=== PATIENT | male | born 1955 | race Caucasian/White ===

== ENCOUNTER 2022-07-14 09:08 | Outpatient (CLI) | payer OTHER ==
[~2022-07-14 09:08] MED LIST: FOLI0.4T6 PO; MELO-102 PO; METH2.5T PO; MULT-1179 PO; SERT100T PO
== END 2022-07-14 23:59 | disposition home or self-care (01) ==
LOC: RAD 09:08
PROVIDERS: ATTEND Internal Medicine
DX: I63.9 Cerebral infarction, unspecified (principal); M50.21 Other cervical disc displacement, high cervical region; M48.02 Spinal stenosis, cervical region; G83.9 Paralytic syndrome, unspecified
CPT/HCPCS: 70551; 72141